=== PATIENT | female | born 1950 | race African-American/Black ===

== ENCOUNTER 2020-11-16 10:03 | Emergency (ER) | payer MEDICARE, OTHER ==
[~2020-11-16] VITALS: Ht 165.1 cm; Wt 74.8 kg
--- NOTE | 2020-11-16 10:08 | NUR ---
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 PATIENT A/OX1, NON-VERBAL, PER EMS PATIENT IS AT BASELINE. PATIENT PLACED ON THE DUSTLESS OPERATOR.
[2020-11-16] MEDS ORDERED: ONDANSETRON HCL/PF 4 MG/2 ML VIAL ONE (10:11)
--- NOTE | 2020-11-16 10:23 | NUR ---
BLOOD DRAWN AND SENT TO LAB.
[2020-11-16] MEDS ORDERED: ONDANSETRON HCL/PF 4 MG/2 ML VIAL IV ONE (10:30)
[2020-11-16] MEDS ORDERED: IV NS 0.9% 1,000 ML BAG IV ONE ×2 (10:30→11:30)
[2020-11-16 10:31] LABS: EOSINOPHILS % (AUTO) 0.4 % (0.0-6.0); WHITE BLOOD COUNT (AUTO) 12.3 K/uL (4.3-11.0)
[2020-11-16 10:34] LABS: BASOPHILS % (AUTO) 0.3 % (0.0-2.0); HEMATOCRIT 34 % (33-45); HEMOGLOBIN 10.5 g/dL (11.5-14.8); LYMPHOCYTES # (AUTO) 1.7 K/uL (0.8-4.8); LYMPHOCYTES % (AUTO) 13.9 % (20.0-44.0); MEAN CORPUSCULAR HGB CONC 31 g/dl (31.0-36.0); MEAN CORPUSCULAR VOLUME 94 fL (82-100); MONOCYTES # (AUTO) 0.6 K/uL (0.1-1.30); NEUTROPHILS # (AUTO) 9.9 K/uL (1.8-8.9); NEUTROPHILS % (AUTO) 80.4 % (43.0-81.0); PLATELET COUNT (AUTO) 309 K/uL (150-450); RED BLOOD CELL COUNT(AUTO) 3.65 MIL/uL (4.0-5.2)
--- NOTE | 2020-11-16 10:35 | NUR ---
patient taken to CT.
[2020-11-16] MEDS ORDERED: CARV12.52 GT (10:47)
[2020-11-16] MEDS ORDERED: SODI650T GT (10:47)
[2020-11-16] MEDS ORDERED: LEVE100S GT (10:47)
[2020-11-16] MEDS ORDERED: ASCO-352 GT (10:47)
[2020-11-16] MEDS ORDERED: MELA3TAB41 GT (10:47)
[2020-11-16] MEDS ORDERED: MEMA10TA GT (10:47)
[2020-11-16] MEDS ORDERED: POTA20PA3 GT (10:47)
[2020-11-16] MEDS ORDERED: TACR1CAP2 GT (10:47)
[2020-11-16] MEDS ORDERED: ACET-868 GT (10:47)
[2020-11-16] MEDS ORDERED: SENN-261 GT (10:47)
[2020-11-16] MEDS ORDERED: FOLI0.4T6 GT (10:47)
[2020-11-16] MEDS ORDERED: NUT.237L30 GT (10:47)
[2020-11-16] MEDS ORDERED: CLON0.1T GT (10:47)
[2020-11-16] MEDS ORDERED: DOCU-141 GT (10:47)
[2020-11-16] MEDS ORDERED: LEVO500T90 GT (10:47)
[2020-11-16] MEDS ORDERED: ACET-2605 GT (10:47)
[2020-11-16] MEDS ORDERED: ASPI-1169 GT (10:47)
[2020-11-16] MEDS ORDERED: FAMO20TA8 GT (10:47)
[2020-11-16] MEDS ORDERED: HYDR-4076 GT (10:47)
[2020-11-16] MEDS ORDERED: BISA10SU11 RC (10:47)
[2020-11-16] MEDS ORDERED: MYCO200S2 GT (10:47)
[2020-11-16] MEDS ORDERED: SIMV10TA98 GT (10:47)
[2020-11-16] MEDS ORDERED: MAGN400O6 GT (10:47)
[2020-11-16] MEDS ORDERED: QUET50TA GT (10:47)
[2020-11-16] MEDS ORDERED: NA P133E RC (10:47)
[2020-11-16 10:56] LABS: ALBUMIN 3.2 g/dL (3.4-5.0); BILIRUBIN,DIRECT 0.1 mg/dL (0.0-0.2); BILIRUBIN,TOTAL 0.3 mg/dL (0.2-1.0); CALCIUM, SERUM 9.9 mg/dL (8.5-10.1); CREATININE 3.7 mg/dL (0.6-1.3); POTASSIUM 5.3 mmol/L (3.5-5.1); TOTAL PROTEIN, SERUM 7.8 g/dL (6.4-8.2)
--- NOTE | 2020-11-16 10:58 | NUR ---
COVID PCR SWAB DONE AND SENT TO LAB
--- NOTE | 2020-11-16 11:10 | NUR ---
UA SENT TO LAB
[2020-11-16] MEDS ORDERED: INSULIN REGULAR, HUMAN 100 UNIT/ML 10 ML VIAL ONE (11:16)
[2020-11-16 11:18] LABS: BILIRUBIN,URINE Negative (NEGATIVE); COLOR,URINE YELLOW (YELLOW); LEUKOCYTE ESTERASE ,URINE Negative (NEGATIVE); NITRITE, URINE Negative (NEGATIVE); PH,URINE 7.5 (5.0-8.0); PROTEIN,URINE >=300 mg/dl (NEGATIVE); UGLUCOSE 500 MG/DL mg/dL (NEGATIVE); UROBILINOGEN,URINE 0.2 EU/dL (0.2)
[2020-11-16 11:28] LABS: BACTERIA,URINE None seen /HPF (None Seen); SQUAMOUS EPITHELIAL CELL,UR None Seen /HPF (None Seen); WBC,URINE 0-2 /HPF (0-3)
[2020-11-16] MEDS ORDERED: PIPERACILLIN /TAZOBACTAM 3.375 G in IV D5W 50 ML IV ONE (11:30)
[2020-11-16] MEDS ORDERED: INSULIN REGULAR, HUMAN 100 UNIT/ML 10 ML VIAL SQ ONE (11:30)
--- NOTE | 2020-11-16 11:43 | NUR ---
NURSING SUP GAVE TELE 109.
[2020-11-16] MEDS ORDERED: PIPERACILLIN /TAZOBACTAM 3.375 G VIAL IV ONE (11:53)
[2020-11-16] MEDS ORDERED: hydrALAZINE HCL IV 20 MG VIAL ONE (11:53)
[2020-11-16] MEDS ORDERED: hydrALAZINE HCL IV 20 MG VIAL IV ONE (12:00)
--- NOTE | 2020-11-16 12:04 | NUR ---
BP ELEVATED 226/96 HR 81
[2020-11-16] MEDS: NICARDIPINE IN NACL, ISO-OSM 200 ML IV PRN ×3 (12:20→21:00)
[2020-11-16] MEDS ORDERED: MAGNESIUM HYDROXIDE 30 ML UDC PO PRN (13:00)
[2020-11-16] MEDS ORDERED: CEFTRIAXONE 1 G in IV D5W 50 ML IV SCH (13:00)
[2020-11-16] MEDS ORDERED: ZOLPIDEM TARTRATE 5 MG TABLET PO PRN (13:00)
[2020-11-16] MEDS ORDERED: ONDANSETRON HCL/PF 4 MG/2 ML VIAL IVP PRN (13:00)
[2020-11-16] MEDS ORDERED: MAG HYDROX/AL HYDROX/SIMETH 30 ML UDC PO PRN (13:00)
[2020-11-16] MEDS ORDERED: ACETAMINOPHEN 325 MG TABLET PO PRN (13:00)
[2020-11-16] MEDS ORDERED: Z GUARD REMEDY 2 OZ OINT TP PRN (13:00)
[2020-11-16] MEDS ORDERED: IV 1/2NS 1000 ML 1,000 ML IV PRN (13:00)
--- NOTE | 2020-11-16 13:06 | NUR ---
PATIENT A/OX1, BREATHING EVEN AND UNLABORED, NO SOB NOTED. NO EPISODE OF VOMITING NOTED AT THIS TIME.
--- NOTE | 2020-11-16 13:22 | NUR ---
F[facility] CALLED,SPOKE WITH MR ANDRE ALSTON,,KIDNEY TRANSPLANT WAS DONE AT [facility] AND HE WOULD LIKE TO BE UPDATED AT [phone]
--- NOTE | 2020-11-16 13:30 | NUR ---
INITIAL CALL WITH [facility].
--- NOTE | 2020-11-16 13:34 | NUR ---
CALLED [facility] TRANSFER LINE. ON THE PHONE FOR A TOTAL OF 4 MINUTES AND WENT TO VOICEMAIL. CALLED BACK 4 TIMES AFTER INITIAL CONTACT.
--- NOTE | 2020-11-16 13:40 | NUR ---
CALLED [facility] AT [phone]. CONNECTED TO HOSPITAL MANAGER WORK AND ASKED TO BE CONNECTED TO TRANSPLANT LINE. ON PHONE FOR TOTAL OF 4 MINUTES.
--- NOTE | 2020-11-16 13:47 | NUR ---
[facility] TRANSPLANT CENTER AGKHPM-[phone]
--- NOTE | 2020-11-16 13:59 | NUR ---
ON THE PHONE FOR TOTAL OF 19 MINUTES WITH [facility] TRANSPLANT LINE. WAS ABLE TO GET A HOLD OF SOMEONE AND THE NURSES ARE CURRENLTY IN CLINIC. TOOK DOWN PATIENT INFORMATION WELL CALL BACK NUMBER AND WILL CALL US BACK AFTER [phone].
--- NOTE | 2020-11-16 14:21 | NUR ---
CALLED [facility] TRANSFER CENTER FOR HIGHER LEVEL OF CARE. SPOKE TO VIJAY AND ADVISED US TO CALL [facility] DUE TO THE TRANSPLANT BEING DONE THERE. WILL STILL TAKE DOWN INFORMATION OF PATIENT AND PRESENT THE CASE TO THEIR DOCTORS.
--- NOTE | 2020-11-16 14:21 | NUR ---
[facility] CALLED INSTEAD SINCE TRANSPLANT WAS DONE IN [facility]
--- NOTE | 2020-11-16 14:24 | NUR ---
CALLED [facility] TRANSPLANT CENTER AND THEY KEEP REFERRING ME TO [facility] TRANSFER CENTER. WHEN CONNECTED TO TRANSFER CENTER THEY SEND ME TO VOICEMAIL AND WHEN TRYING TO LEAVE VOICEMAIL, GET CUT OFF ON MY RECORDING AFTER 3 SECONDS. WILL TRY AND CONTACT AGAIN AND TRY TO LEAVE A MESSAGE. TOTAL PHONE TIME 20 MINUTES.
--- NOTE | 2020-11-16 14:47 | NUR ---
CALLED TRANSFER CENTER FOR US. WAS ABLE TO LEAVE MESSAGE. WILL CALL US BACK WHEN RECEIVING MESSAGE.
[2020-11-16] MEDS ORDERED: INSULIN REGULAR, HUMAN 100 UNIT/ML 3 ML VIAL SQ ONE (15:00)
--- NOTE | 2020-11-16 15:00 | NUR ---
RECEIVED A CALL FROM [facility] TRANSFER CENTER, AND REQUESTED CLINICAL INFORMATION OF PATIENT. EXPLAINED CASE TO HER AND WILL NOTIFY TRANSPLANT CENTER OF THE CASE.
--- NOTE | 2020-11-16 15:10 | NUR ---
[facility] TRANS[facility]ANT C[facility] CALLED BACK REGARDING PATIENT.
--- NOTE | 2020-11-16 15:23 | NUR ---
RECEIVED A CALL FROM [facility] JULIO CESAR TO DECLINE THE CASE.
--- NOTE | 2020-11-16 15:33 | NUR ---
CLINICALS FAXED TO [facility].
--- NOTE | 2020-11-16 16:11 | NUR ---
RECEIVED CALL FROM SHALINI ([facility] TRANSPLANT CENTER) AND PER SHALINI THE PATIENT CAN`T BE TAKEN DIRECTLY TO [facility] TRANPANT EDWARDS SINCE THE PATIENT NEEDS ICU BED. INSTEAD [facility] SHOULD CALL [facility] TRANSFER CENTER TO ARRANGE PLACEMENT.
--- NOTE | 2020-11-16 16:40 | NUR ---
PATIENT RESTING, NEEDS ATTENDED. KEPT COMFORTABLE.
--- NOTE | 2020-11-16 17:05 | NUR ---
TRANSFER INFO RECEIVED A CALL FROM ZEFERINO FROM [facility] TRANSFER CENTER. PT HAS BEED ACCEPTED TO [facility]. PT ACCEPTED UNDER THE CARE OF DR. GAUTHIER. ROOM NUMBER IS [id number]. NUMBER FOR REPORT IS [phone]. PLEASE TRANSFER PATIENT CLOSER TO 1900 DUE TO STAFFING NEEDS. Addendum: 11/16/20 at 1854 by EL UPDATED ROOM NUMBER 8 [facility] 0859. WHEN CALLING AMBULANCE THEY WILL HAVE TO CALL THE LOBBY [phone] TO BE ALLOWED AND ESCORTED INTO THE HOSPITAL TO GO TO THE ROOM DUE TO COVID PRECAUTIONS.
--- NOTE | 2020-11-16 17:54 | NUR ---
CALLED [facility] FOR CCT TRANSPORT. NO AVAILABLE UNITS UNTIL TOMORROW.
[2020-11-16] MEDS ORDERED: DEXAMETHASONE SOD PHOSPHATE 10 MG/ML VIAL IV ONE (18:00)
--- NOTE | 2020-11-16 18:02 | NUR ---
CALLED [facility] FOR CCT TRANSPORT, NO AVAILABLE UNITS UNTIL 1400 TOMORROW.
--- NOTE | 2020-11-16 18:09 | NUR ---
CALLED [facility] FOR CCT TRANSPORT. NO AVAILABLE UNITS UNTIL TOMORROW AFTERNOON.
--- NOTE | 2020-11-16 18:17 | NUR ---
CALLED [facility] FOR CCT TRANSPORT. NO UNITS AVAILABLE.
--- NOTE | 2020-11-16 18:25 | NUR ---
CALLED [facility] FOR CCT TRANSPORT. NO AVAILABLE NURSE FOR TRANSPORT UNITL 1400 TOMORROW.
--- NOTE | 2020-11-16 18:44 | NUR ---
CALLED [facility] FOR CCT TRANSPORT. DO NOT OFFER CCT SERVICES.
--- NOTE | 2020-11-16 18:52 | NUR ---
CALLED [facility] FOR CCT TRANSPORT. NO CCT CREW AVAILABLE FOR TRANSPORT.
--- NOTE | 2020-11-16 18:53 | NUR ---
CALLED [facility] FOR CCT TRANSPORT. NO AMBULANCE SERVICES IN OUR AREA.
--- NOTE | 2020-11-16 19:00 | NUR ---
CALLED [facility] FOR CCT TRANSPORT. NO CAPABILITIES.
--- NOTE | 2020-11-16 19:03 | NUR ---
[facility]SP[facility]. NO CCT NURSE AVAILABLE TO TAKE CALL.
--- NOTE | 2020-11-16 19:05 | NUR ---
CALLED [facility] FOR CCT TRANSPORT. NO AMBULANCES IN THE AREA.
--- NOTE | 2020-11-16 19:10 | NUR ---
CALLED [facility] FOR CCT TRANSPORT. NO NURSE AVAILABLE.
--- NOTE | 2020-11-16 19:19 | NUR ---
REPORT GIVEN TO JOSE GARDUNO @ [facility].
--- NOTE | 2020-11-16 19:21 | NUR ---
AMBULANCE INFO CALLED [facility] FOR CCT TRANSPORT. THEY ARE ABLE TO ACOMMODATE CCT TRANSPORT WITH CARDIAC MONITORING, DRIP MONITORING, AND O2 ADMINISTRATION. ETA FOR TRANSPORT IS 2200. GIVE AMBULANCE THESE INSTRUCTIONS PER CM AT [facility]. (AMBULANCE CREW PLEASE CALL [phone]. 30 MINUTES PRIOR TO ARRIVAL AND AT ARRIVAL TO FACILITY TO BE ESCORTED TO UNIT).
--- NOTE | 2020-11-16 19:30 | NUR ---
DAPHNEY MCGARRY PHONE NUMBER FROM [facility]. PHONE: [phone] FAX: [phone]
[2020-11-16] MEDS ORDERED: HEPARIN SODIUM, PORCINE 5000 UNITS/1 ML VIAL SQ SCH (21:00)
--- NOTE | 2020-11-16 22:19 | NUR ---
JOSE GARDUNO [phone] FROM [facility] WANTS US TO NOTIFY HER WHEN PT WILL BE PICKED UP FOR TRANSFER.
--- NOTE | 2020-11-16 22:55 | NUR ---
[phone], NEW ETA IS [phone]
[2020-11-17] VITALS: BP 153/72
--- NOTE | 2020-11-17 00:05 | NUR ---
TELEPHONE CALL TO JOSE GARDUNO AT [facility], ADVISED HER PT IS BEING PICKED UP WITH SAMINA GARDUNO, Jon VORA EMT AND 2 OTHER EMT PRESENT. NICARDIPINE DRIP INFUSING AT 10 MG/HR. BP AT 157/59.
--- NOTE | 2020-11-17 00:10 | NUR ---
PATIENT TRANSFERRED TO [facility] VIA ACLS PROTOCOL, IN STABLE CONDITION. O2 SAT 98 AT 3L VIA NC.
--- NOTE | 2020-11-17 00:16 | NUR ---
PATIENT TO [facility] ROOM [id number]
[2020-11-17] MEDS ORDERED: PANTOPRAZOLE 40 MG TABLET.DR PO SCH (07:30)
[2020-11-17] MEDS ORDERED: MYCOPHENOLATE MOFETIL 250 MG CAPSULE PO SCH (09:00)
[2020-11-17] MEDS ORDERED: TACROLIMUS ANHYDROUS 1 MG CAPSULE GT SCH (09:00)
== END 2020-11-17 00:10 | disposition short-term general hospital (02) ==
LOC: ER 10:18 → TELE1 12:14 → UNDOADMIN 12:14 → ER 11-17 00:10
DX: T86.12 Kidney transplant failure (principal); E11.65 Type 2 diabetes mellitus with hyperglycemia; E11.22 Type 2 diabetes mellitus with diabetic chronic kidney disease; N18.9 Chronic kidney disease, unspecified; Z20.822 Contact with and (suspected) exposure to COVID-19; Z94.0 Kidney transplant status; J44.9 Chronic obstructive pulmonary disease, unspecified; F20.9 Schizophrenia, unspecified; Z79.82 Long term (current) use of aspirin; Z79.899 Other long term (current) drug therapy; G93.40 Encephalopathy, unspecified; E87.0 Hyperosmolality and hypernatremia; R94.31 Abnormal electrocardiogram [ECG] [EKG]; R11.10 Vomiting, unspecified; F41.9 Anxiety disorder, unspecified; I13.0 Hypertensive heart and chronic kidney disease with heart failure and stage 1 through stage 4 chronic kidney disease, or unspecified chronic kidney disease; I50.9 Heart failure, unspecified; I31.3 Pericardial effusion (noninflammatory); K21.9 Gastro-esophageal reflux disease without esophagitis
CPT/HCPCS: 36415; 70450; 71045; 74176; 80048; 80076; 81001; 82010; 82962 ×3; 83605; 83690; 84484; 85025; 87040 ×2; 87086; 87426; 93005; 93975; 96361; 96365; 96366; 96372; 96374; 96375; 99291; J0360; J0696; J1815 ×2; J2405; J2543 ×2; J7030 ×2; J7060 ×2; C9803; U0003